=== PATIENT | female | born 1965 | race Caucasian/White ===

== ENCOUNTER → 2020-01-26 | Outpatient (CLI) | payer OTHER ==
[~2020-01-26] MED LIST: ATOR40TA PO; CLIN300C8 PO; CYCL-259 PO; HYDR4TAB48 PO; METO25TA91 PO
== END | disposition home or self-care (01) ==
LOC: RAD 08:42
PROVIDERS: ATTEND Surgery Surgery of the Hand
DX: M65.841 Other synovitis and tenosynovitis, right hand (principal)